=== PATIENT | male | born 1970 | race Caucasian/White ===

== ENCOUNTER 2021-03-25 16:49 | Emergency (ER) | payer BC ==
[2021-03-25] MEDS ORDERED: HYDROmorphone 0.5 MG/0.5 ML Syringe IVPUSH ONE (17:12)
[2021-03-25] MEDS ORDERED: Ketorolac 30 MG/ML SDV IVPUSH ONE (17:12)
[2021-03-25] MEDS ORDERED: Ondansetron 4 MG/2 ML SDV IVPUSH ONE (17:12)
[2021-03-25] MEDS ORDERED: Sodium Chloride 0.9% 1,000 ML IV SCH (17:15)
--- NOTE | 2021-03-25 17:20 | EDM.PDOC ---
ED HPI GENERAL MEDICAL PROBLEM - General Chief Complaint: Flank Pain Stated Complaint: KIDNEY PAIN LT SIDE Time Seen by Provider: 03/25/21 17:05 Source of Information: Reports: Patient History Limitations: Reports: No Limitations - History of Present Illness INITIAL COMMENTS - FREE TEXT/NARRATIVE: This is a pleasant 50 year old male presenting with left flank pain. The patient reports about 2 weeks of intermittent mild left flank pain. About one hour ago, the pain became much more severe. He reports some associated nausea, but no vomiting. he admits to some dark urine and now some difficulty urinating. he reports a history of kidney several times in the past, with one episode requiring lithotripsy. Denies fever or chills. He has not taken anything at home for the pain. Left Flank Pain Score (Numeric/FACES): 8 - Related Data Allergies Allergy/AdvReac Type Severity Reaction Status Date / Time Penicillins Allergy Cannot Verified 03/25/21 16:56 Remember Home Meds: Home Meds Cetirizine [ZyrTEC] 10 mg PO DAILY 08/06/18 [History] Omeprazole 40 mg PO DAILY 08/06/18 [History] amLODIPine [Norvasc] 10 mg PO DAILY 08/06/18 [History] Tamsulosin HCl [Flomax] 0.4 mg PO DAILY #10 capsule 03/25/21 [Rx] Past Medical History Cardiovascular History: Reports: Hypertension, SOB on Exertion Gastrointestinal History: Reports: GERD Genitourinary History: Reports: Renal Calculus - Infectious Disease History Infectious Disease History: Reports: Chicken Pox - Past Surgical History Male Surgical History: Reports: Lithotripsy (ES[facility]) Social & Family History - Family History Family Medical History: No Pertinent Family History - Tobacco Use Tobacco Use Status *Q: Never Tobacco User Second Hand Smoke Exposure: No - Caffeine Use Caffeine Use: Reports: Coffee, Soda - Recreational Drug Use Recreational Drug Use: Yes Recreational Drug Type: Reports: Marijuana/Hashish Recreational Drug Use Frequency: Daily ED ROS GENERAL - Review of Systems Review Of Systems: Comprehensive ROS is negative, except as noted in HPI. ED EXAM, RENAL/ - Physical Exam Exam: See Below Exam Limited By: No Limitations General Appearance: Alert, Moderate Distress (due to pain) Head: Atraumatic, Normocephalic Neck: Supple, Full Range of Motion Respiratory/Chest: Lungs Clear, Normal Breath Sounds, No Accessory Muscle Use Cardiovascular: Regular Rate, Rhythm GI/Abdominal: Soft, Non-Tender Back Exam: Normal Inspection, CVA Tenderness (L) Extremities: Normal Range of Motion, No Pedal Edema Neurological: Alert, Oriented, Normal Cognition, No Motor/Sensory Deficits Psychiatric: Normal Affect, Normal Mood Skin Exam: Warm, Dry Course - Vital Signs Last Recorded V/S: Last Vital Signs Temp 97.6 F 03/25/21 17:04 Pulse 67 03/25/21 17:57 Resp 18 03/25/21 17:04 BP 136/91 H 03/25/21 17:57 Pulse Ox 97 03/25/21 17:57 - Orders/Labs/Meds Labs: Laboratory Tests 03/25/21 03/25/21 03/25/21 Range/Units 17:22 17:22 19:10 WBC 12.7 H (4.5-11.0) K/uL RBC 5.46 (4.30-5.90) M/uL Hgb 16.3 H (12.0-15.0) g/dL Hct 48.0 (40.0-54.0) % MCV 88 (80-98) fL MCH 30 (27-31) pg MCHC 34 (32-36) % Plt Count 306 (150-400) K/uL Neut % (Auto) 75.5 H (36-66) % Lymph % (Auto) 13.4 L (24-44) % [place] % (Auto) 10.7 H (2-6) % Eos % (Auto) 0.2 L (2-4) % Baso % (Auto) 0.2 (0-1) % Sodium 142 (140-148) mmol/L Potassium 3.8 (3.6-5.2) mmol/L Chloride 103 (100-108) mmol/L Carbon Dioxide 26 (21-32) mmol/L Anion Gap 13.0 (5.0-14.0) mmol/L BUN 18 (7-18) mg/dL Creatinine 1.2 (0.8-1.3) mg/dL Est Cr Clr Drug Dosing 79.31 mL/min Estimated GFR (MDRD) > 60 (>60) Glucose 112 H (74-106) mg/dL Calcium 9.6 (8.5-10.1) mg/dL Urine Color Brown A (YELLOW) Urine Appearance Turbid A (CLEAR) Urine pH 5.5 (5.0-8.0) Ur Specific [place] >= 1.030 (1.008-1.030) Urine Protein 100 H (NEGATIVE) mg/dL Urine Glucose (UA) Negative (NEGATIVE) mg/dL Urine Ketones 40 H (NEGATIVE) mg/dL Urine Occult Blood Large H (NEGATIVE) Urine Nitrite Negative (NEGATIVE) Urine Bilirubin Small H (NEGATIVE) Urine Urobilinogen 0.2 (0.2-1.0) EU/dL Ur Leukocyte Esterase Negative (NEGATIVE) Urine RBC Packed H (0-5) Urine WBC 0-5 (0-5) Ur Epithelial Cells Not seen Amorphous Sediment Few Urine Bacteria Occasional Urine Mucus Numerous Urine Other See note Meds: Medications Discontinued Medications Generic Name Dose Route Start Last Admin Trade Name Freq PRN Reason Stop Dose Admin Hydromorphone HCl 0.5 mg 03/25/21 17:12 03/25/21 17:24 Hydromorphone 0.5 Mg/0.5 Ml Syringe IVPUSH 03/25/21 17:13 0.5 mg ONETIME ONE Administration Sodium Chloride 1,000 mls @ 1,000 mls/hr 03/25/21 17:15 03/25/21 17:55 Normal Saline IV 1,000 mls/hr ASDIRECTED SONYA Administration Ketorolac Tromethamine 30 mg 03/25/21 17:12 03/25/21 17:19 Ketorolac 30 Mg/Ml Sdv IVPUSH 03/25/21 17:13 30 mg ONETIME ONE Administration Ondansetron HCl 4 mg 03/25/21 17:12 03/25/21 17:21 Ondansetron 4 Mg/2 Ml Sdv IVPUSH 03/25/21 17:13 4 mg ONETIME ONE Administration Oxycodone HCl 10 mg 03/25/21 18:56 03/25/21 19:01 Oxycodone 5 Mg Tab PO 03/25/21 18:57 10 mg ONETIME ONE Administration Departure - Departure Time of Disposition: 19:48 Disposition: Home, Self-Care 01 Clinical Impression: Renal colic on left side - Discharge Information Prescriptions: Tamsulosin HCl [Flomax] 0.4 mg PO DAILY #10 capsule Instructions: Kidney Stones Referrals: PCP,None [Primary Care Provider] - Forms: ED Department Discharge Additional Instructions: Follow up with Urology at [facility]. Call tomorrow to schedule an appointment. [facility] [address] [place] [address] Strain your urine. Drink plenty of fluids. Take 600 mg if ibuprofen every 6 hours for pain. Use the percocet if pain is not controlled with ibuprofen. Use the zofran for nausea. Return to the emergency department if your pain is not controlled, if you are vomiting, or if you develop a fever. Sepsis Event Note (ED) - Evaluation Sepsis Screening Result: No Definite Risk - Focused Exam Vital Signs: Vital Signs Temp Pulse Resp BP Pulse Ox 03/25/21 17:57 67 136/91 H 97 03/25/21 17:04 97.6 F 67 18 165/97 H 99 - Problem List Review Problem List Initiated/Reviewed/Updated: Yes - Assessment/Plan Assessment:: This is a 50 year old male presenting with left flank pain and a history of kidney stones. History today is suggestive of renal colic. Labs were obtained and notable for a WBC of 12.7, but otherwise unrevealing. His kidney function is normal. Urinalysis reveals RBCs, but no evidence of infection. CT of the abd/pelvis showed a 0.4mm stone at the left UVJ with left hydroureter as well as a more proximal 1.1 cm stone at the UPJ with left hydronephrosis. He was treated in the ED with IVF, zofran, toradol, and dilaudid with improvement of his pain. He was later given a dose of oral oxycodone. Given the size of the stone, I did consult with supervisor filtration urologist Dr. Rhodes with [facility] in [place]. He recommended that the patient could be discharged home as long as his pain was controlled and he was tolerating PO and could follow up with them this week as an outpatient. If his pain was not controlled, he recommended transfer for admission. On reassessment, the patient reported his pain was controlled and he would prefer to go home and follow up as an outpatient. Therefore, he will be discharged home with percocet, zofran, and flomax to use in addition to over the counter ibuprofen. He will follow up with urology this week. He was instructed to return to the ED for uncontrolled pain, vomiting, fever, or other concerning symptoms.
--- NOTE | 2021-03-25 17:55 | CRLCT ---
For Patients: As a result of the Cures Act, medical imaging exams and procedure reports are released immediately into your electronic medical record. You may view this report before your referring provider. If you have questions, please contact your health care provider. INDICATION: Left-sided pain. History of stones. COMPARISON: None. TECHNIQUE: CT abdomen and pelvis without contrast. FINDINGS: The imaged lung bases are unremarkable. Noncontrast evaluation of the liver, gallbladder, spleen, pancreas and adrenal glands are unremarkable. Obstructing left proximal ureteral calculus at the UPJ measuring 1.1 cm in diameter (series 2, image 100). Mild left hydronephrosis. Obstructing distal left ureteral calculus at the UVJ measuring 0.4 cm (series 2, image 212). Mild left hydroureter. Mild left perinephric stranding. Bladder is unremarkable. No free fluid or free air. Diverticulosis. Normal appendix. No bowel obstruction or inflammation. Abdominal aorta is normal in caliber. No enlarged abdominal or pelvic lymph nodes. 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 IMPRESSION: 1. Obstructing renal calculus at the left UPJ with mild left hydronephrosis. 2. Obstructing distal left ureteral calculus at the UVJ measuring 0.4 cm with mild left hydroureter. Please note that all CT scans at this facility use dose modulation, iterative reconstruction, and/or weight-based dosing when appropriate to reduce radiation dose to as low as reasonably achievable. Dictated by Artemio Quick MD @ 03/25/2021 5:54:[address] Artemio Quick @ Mar 25 2021 5:54PM
[2021-03-25] MEDS ORDERED: oxyCODONE 5 MG Tab PO ONE (18:56)
== END 2021-03-25 20:12 | disposition home or self-care (01) ==
LOC: JP.ED 16:49
DX: N23 Unspecified renal colic (principal); K21.9 Gastro-esophageal reflux disease without esophagitis; I10 Essential (primary) hypertension; Z88.0 Allergy status to penicillin; Z79.899 Other long term (current) drug therapy
CPT/HCPCS: 36415; 74176; 80048; 81001; 85025; 96374; 96375; 99284; A9270; J1170; J1885; J2405; J7030

== ENCOUNTER 2021-11-09 08:58 | Day surgery (SDC) | payer BC ==
[~2021-11-09 08:58] MED LIST: Midazolam 1 MG/ML 2 ML SDV ONE; Propofol 200 MG/20 ML SDV ONE; fentaNYL 100 MCG/2 ML SDV ONE
[2021-11-09] MEDS ORDERED: Sodium Chloride 0.9% 1,000 ML IV SCH (09:30)
[2021-11-09] MEDS ORDERED: Propofol 200 MG/20 ML SDV ONE (10:49)
== END 2021-11-09 11:51 | disposition home or self-care (01) ==
LOC: JP.SDS 08:58
PROVIDERS: ATTEND Surgery
DX: R10.9 Unspecified abdominal pain (principal); E78.5 Hyperlipidemia, unspecified; I10 Essential (primary) hypertension; E66.9 Obesity, unspecified; Z88.0 Allergy status to penicillin
CPT/HCPCS: 88305; J2250; J2704; J3010; J7030

== ENCOUNTER 2024-12-19 10:28 | Observation (INO) | payer BC ==
[2024-12-19] MEDS ORDERED: Sodium Chloride 0.9% 10 ML Syringe FLUSH PRN (10:36)
[2024-12-19 10:54] LABS: BASOPHILS ABSOLUTE AUTO 0.04 K/uL (0.00-0.10); BASOPHILS PERCENT AUTO 0.3 % (0.1-1.3); EOSINOPHILS PERCENT AUTO 0.1 % (0.0-5.4); HEMATOCRIT 47.8 % (38.4-49.7); HEMOGLOBIN 16.8 g/dL (12.9-16.9); IMMATURE GRAN PERCENT AUTO 0.7 % (0.0-0.7); LYMPHOCYTES ABSOLUTE AUTO 1.12 K/uL (0.8-3.3); LYMPHOCYTES PERCENT AUTO 7.5 % (11.4-47.7); MEAN CORPUSCULAR HEMOGLOBIN 30.9 pg (31.6-35.5); MEAN CORPUSCULAR HGB CONC 35.1 g/dL (31.6-35.5); MONOCYTES PERCENT AUTO 8.1 % (3.3-12.6); NEUTROPHILS PERCENT AUTO 83.3 % (40.0-78.1); PLATELET COUNT,PLT 260 K/uL (130-375); RED BLOOD CELL COUNT 5.43 M/uL (4.14-5.76); WHITE BLOOD CELL COUNT,WBC 14.9 K/uL (3.2-11.0)
[2024-12-19 10:56] LABS: EOSINOPHILS ABSOLUTE AUTO 0.01 K/uL (0.00-0.40)
[2024-12-19 11:11] LABS: PROTHROMBIN TIME 10.5 sec (9.2-10.6); PTT,PARTIAL THROMBOPLSTIN TIME 23.4 sec (21.8-27.3)
[2024-12-19 11:15] LABS: A/G RATIO 1.2 (1.2-2.2); ALANINE AMINOTRANSFERASE,ALT 43 U/L (12-78); ALBUMIN 4.2 g/dL (3.4-5.0); ALKALINE PHOSPHATASE 71 U/L (46-116); ASPARTATE AMNIOTRANSFERASE,AST 25 U/L (15-37); BILIRUBIN TOTAL 0.4 mg/dL (0.2-1.0); BLOOD UREA NITROGEN,BUN 14 mg/dL (7-18); CARBON DIOXIDE,CO2 26 mmol/L (21-32); CHLORIDE,CL 102 mmol/L (100-108); CREATININE 0.9 mg/dL (0.8-1.3); ESTIMATED GFR 102 mL/min (>60); GLUCOSE RANDOM 144 mg/dL (74-106); PROTEIN TOTAL,TP 7.8 g/dL (6.4-8.2); SODIUM,NA 140 mmol/L (140-148)
[2024-12-19] MEDS: Iopamidol 755 Mg/ML 100 ML Bottle IV SCH (11:25)
[2024-12-19] MEDS: Sodium Chloride 0.9% 10 ML Syringe FLUSH ONE (11:25)
[2024-12-19] MEDS: Sodium Chloride 0.9% 100 ML IV SCH (11:25)
[2024-12-19 11:26] LABS: APPEARANCE,URINE CLEAR (CLEAR); BILIRUBIN,URINE NEGATIVE (NEGATIVE); COLOR,URINE YELLOW (YELLOW); GLUCOSE,URINE 100 mg/dL (NEGATIVE); KETONES,URINE NEGATIVE (NEGATIVE); LEUKOCYTE ESTERASE,URINE NEGATIVE (NEGATIVE); NITRITE,URINE NEGATIVE (NEGATIVE); OCCULT BLOOD,URINE SMALL (NEGATIVE); PROTEIN,URINE NEGATIVE (NEGATIVE); UROBILINOGEN,URINE 0.2 EU/dL (0.2-1.0)
[2024-12-19 11:36] LABS: AMORPHOUS SEDIMENT,URINE NOT SEEN; AMPHETAMINES SCREEN, URINE NEGATIVE (NEGATIVE); BACTERIA,URINE NOT SEEN; BARBITURATE SCREEN,URINE NEGATIVE (NEGATIVE); BENZODIAZEPINES SCREEN,URINE NEGATIVE (NEGATIVE); EPITHELIAL CELLS,URINE RARE; METHADONE SCREEN, URINE NEGATIVE (NEGATIVE); METHAMPHETAMINES SCREEN, URINE NEGATIVE (NEGATIVE); MUCUS,URINE NOT SEEN; OXYCODONE SCREEN,URINE NEGATIVE (NEGATIVE); PROPOXYPHENE SCREEN,URINE NEGATIVE (NEGATIVE); THC SCREEN,URINE 50 NG/ML PRESUMPTIVE POSITIVE (NEGATIVE); WBC,URINE 0-5 (0-5)
[2024-12-19] MEDS: Clopidogrel 75 MG Tab PO ONE (13:06)
[2024-12-19] MEDS: Aspirin 81 MG Tab.Chew PO ONE (13:07)
[2024-12-19] MEDS: Ibuprofen 600 MG Tab PO ONE (13:19)
[2024-12-19] MEDS ORDERED: Morphine 2 MG/ML SYRINGE IVPUSH PRN (13:38)
[2024-12-19] MEDS ORDERED: Ondansetron 4 MG/2 ML SDV IV PRN (13:38)
[2024-12-19] MEDS ORDERED: Acetaminophen 325 MG Tab PO PRN (13:38)
[2024-12-19] MEDS ORDERED: Ondansetron 4 MG Tab.DIS PO PRN (13:38)
[2024-12-19] MEDS ORDERED: Sennosides/Docusate Sodium 50-8.6 MG Tab PO PRN (13:38)
[2024-12-19] MEDS ORDERED: Magnesium Hydroxide 400 MG/5 ML Susp 30 ML Cup PO PRN (13:38)
[2024-12-19 14:00] LABS: CHOLESTEROL HDL 63 mg/dL (40-60); CHOLESTEROL LDL DIRECT 82 mg/dL (0-100); CHOLESTEROL TOTAL 160 mg/dL (0-200); TRIGLYCERIDES 73 mg/dL (15-150)
[2024-12-19] MEDS ORDERED: Insulin Lispro 100 Unit/ML 3 ML KwikPen SUBCUT SCH (14:30)
[2024-12-19] MEDS: Famotidine 20 MG Tab PO SCH (17:25)
[2024-12-19] MEDS: Potassium Chloride 20 MEQ Tab.ER PO SCH (17:26)
[2024-12-19] MEDS: Promethazine 25 MG Tab PO PRN (17:49)
[2024-12-19] MEDS: Cyclobenzaprine 10 MG Tab PO PRN (20:05)
[2024-12-19] MEDS: Acetaminophen/HYDROcodone 325-5 MG Tab PO PRN (20:06)
[2024-12-19] MEDS: LORazepam 2 MG/ML SDV IVPUSH PRN (20:11)
[2024-12-19] MEDS: Melatonin 3 MG Tab PO SCH (20:49)
[2024-12-20 06:01] LABS: HEMATOCRIT 44.8 % (38.4-49.7); HEMOGLOBIN 15.8 g/dL (12.9-16.9); MEAN CORPUSCULAR HEMOGLOBIN 31.1 pg (31.6-35.5); MEAN CORPUSCULAR HGB CONC 35.3 g/dL (31.6-35.5); MEAN CORPUSCULAR VOLUME 88.2 fL (81.4-99.0); RED BLOOD CELL COUNT 5.08 M/uL (4.14-5.76); WHITE BLOOD CELL COUNT,WBC 8.9 K/uL (3.2-11.0)
[2024-12-20 06:14] LABS: HEMOGLOBIN A1C 5.7 % (4.5-6.2)
[2024-12-20 06:20] LABS: A/G RATIO 1.1 (1.2-2.2); ALANINE AMINOTRANSFERASE,ALT 32 U/L (12-78); ALBUMIN 3.6 g/dL (3.4-5.0); ALKALINE PHOSPHATASE 58 U/L (46-116); ASPARTATE AMNIOTRANSFERASE,AST 18 U/L (15-37); BLOOD UREA NITROGEN,BUN 15 mg/dL (7-18); CALCIUM 8.9 mg/dL (8.5-10.1); CARBON DIOXIDE,CO2 25 mmol/L (21-32); CHLORIDE,CL 105 mmol/L (100-108); EST CRCL DRUG DOSING (CG) 90.99 mL/min; ESTIMATED GFR 90 mL/min (>60); GLUCOSE RANDOM 118 mg/dL (74-106); POTASSIUM,K 3.5 mmol/L (3.6-5.2); SODIUM,NA 141 mmol/L (140-148)
[2024-12-20 06:21] LABS: ANION GAP 14.5 mmol/L (5.0-14.0)
[2024-12-20] MEDS: Insulin Lispro 100 Unit/ML 3 ML KwikPen SUBCUT SCH (08:21)
[2024-12-20] MEDS: Rosuvastatin 10 MG Tab PO SCH (09:13)
[2024-12-20] MEDS: Aspirin 81 MG Tab.EC PO SCH (09:13)
[2024-12-20] MEDS: amLODIPine 5 MG Tab PO SCH (09:13)
[2024-12-20] MEDS: Clopidogrel 75 MG Tab PO SCH (09:14)
[2024-12-20] MEDS: Lidocaine 2% 30 ML, Alum Hydrox/Mag Hydrox/Simeth 30 ML, diphenhydrAMINE 75 MG PO PRN (13:19)
[2024-12-20 13:44] LABS: LYME AB IgG Negative (Negative)
[2024-12-20 13:45] LABS: LYME AB IgM Negative (Negative)
== END 2024-12-21 13:55 | disposition home or self-care (01) ==
LOC: JP.ED 10:28 → JP.MS 13:25
PROVIDERS: ADMIT Hospitalist; ATTEND Internal Medicine
DX: R55 Syncope and collapse (principal); R00.1 Bradycardia, unspecified; E87.6 Hypokalemia; I10 Essential (primary) hypertension; E78.00 Pure hypercholesterolemia, unspecified; K21.9 Gastro-esophageal reflux disease without esophagitis; Z87.891 Personal history of nicotine dependence; Z79.899 Other long term (current) drug therapy; Z88.0 Allergy status to penicillin
CPT/HCPCS: 36415; 70450; 70496; 70498; 70551; 73501-RT; 80053; 80061; 80305-QW; 81001; 82947; 83036; 84484; 85025; 85027; 85610; 85730; 86618; 93005; 93010; 93246; 96374; 97110-GP; 97161-GP; 97165-GO; 99223; 99232; 99239; 99285; A9270-GY; C8929; G0378; J1815; J2060; Q0169; Q9967

== ENCOUNTER 2025-02-19 08:28 | Emergency (ER) | payer BC ==
[2025-02-19] MEDS: Midazolam 1 MG/ML 2 ML SDV IVPUSH ONE (09:03)
[2025-02-19 09:06] LABS: BASOPHILS ABSOLUTE AUTO 0.02 K/uL (0.00-0.10); BASOPHILS PERCENT AUTO 0.2 % (0.1-1.3); EOSINOPHILS ABSOLUTE AUTO 0.04 K/uL (0.00-0.40); EOSINOPHILS PERCENT AUTO 0.4 % (0.0-5.4); HEMATOCRIT 45.2 % (38.4-49.7); HEMOGLOBIN 15.8 g/dL (12.9-16.9); IMMATURE GRAN ABSOLUTE AUTO 0.08 K/uL (0.00-0.23); IMMATURE GRAN PERCENT AUTO 0.8 % (0.0-0.7); LYMPHOCYTES ABSOLUTE AUTO 1.19 K/uL (0.8-3.3); MEAN CORPUSCULAR HEMOGLOBIN 30.9 pg (31.6-35.5); MEAN CORPUSCULAR VOLUME 88.3 fL (81.4-99.0); MONOCYTES ABSOLUTE AUTO 0.95 K/uL (0.20-0.90); MONOCYTES PERCENT AUTO 9.6 % (3.3-12.6); NEUTROPHILS ABSOLUTE AUTO 7.61 K/uL (1.0-7.6); PLATELET COUNT,PLT 232 K/uL (130-375); RED BLOOD CELL COUNT 5.12 M/uL (4.14-5.76); WHITE BLOOD CELL COUNT,WBC 9.9 K/uL (3.2-11.0)
[2025-02-19 09:23] LABS: PROTHROMBIN TIME 10.6 sec (9.2-10.6)
[2025-02-19 09:31] LABS: A/G RATIO 1.1 (1.2-2.2); ALANINE AMINOTRANSFERASE,ALT 55 U/L (12-78); ALBUMIN 3.8 g/dL (3.4-5.0); ALKALINE PHOSPHATASE 79 U/L (46-116); ASPARTATE AMNIOTRANSFERASE,AST 27 U/L (15-37); BILIRUBIN TOTAL 0.8 mg/dL (0.2-1.0); BLOOD UREA NITROGEN,BUN 17 mg/dL (7-18); CALCIUM 9.3 mg/dL (8.5-10.1); CARBON DIOXIDE,CO2 24 mmol/L (21-32); CHLORIDE,CL 104 mmol/L (100-108); CREATININE 1.1 mg/dL (0.8-1.3); EST CRCL DRUG DOSING (CG) 82.72 mL/min; ESTIMATED GFR 80 mL/min (>60); GLUCOSE RANDOM 170 mg/dL (74-106); POTASSIUM,K 3.1 mmol/L (3.6-5.2); PROTEIN TOTAL,TP 7.4 g/dL (6.4-8.2); SODIUM,NA 137 mmol/L (140-148); TROPONIN I HIGH SENSITIVITY 20.9 pg/mL (<=60.3)
[2025-02-19 09:34] LABS: ANION GAP 12.1 mmol/L (5.0-14.0)
[2025-02-19 10:07] LABS: APPEARANCE,URINE CLEAR (CLEAR); BILIRUBIN,URINE NEGATIVE (NEGATIVE); COLOR,URINE YELLOW (YELLOW); GLUCOSE,URINE 100 mg/dL (NEGATIVE); KETONES,URINE NEGATIVE (NEGATIVE); LEUKOCYTE ESTERASE,URINE NEGATIVE (NEGATIVE); NITRITE,URINE NEGATIVE (NEGATIVE); OCCULT BLOOD,URINE MODERATE (NEGATIVE); PROTEIN,URINE 100 mg/dL (NEGATIVE); UROBILINOGEN,URINE 0.2 EU/dL (0.2-1.0)
[2025-02-19 10:13] LABS: AMORPHOUS SEDIMENT,URINE NOT SEEN; AMPHETAMINES SCREEN, URINE NEGATIVE (NEGATIVE); BACTERIA,URINE NOT SEEN; BARBITURATE SCREEN,URINE NEGATIVE (NEGATIVE); BENZODIAZEPINES SCREEN,URINE NEGATIVE (NEGATIVE); EPITHELIAL CELLS,URINE NOT SEEN; METHADONE SCREEN, URINE NEGATIVE (NEGATIVE); METHAMPHETAMINES SCREEN, URINE NEGATIVE (NEGATIVE); MUCUS,URINE FEW; OXYCODONE SCREEN,URINE NEGATIVE (NEGATIVE); PROPOXYPHENE SCREEN,URINE NEGATIVE (NEGATIVE); THC SCREEN,URINE 50 NG/ML PRESUMPTIVE POSITIVE (NEGATIVE); WBC,URINE 0-5 (0-5)
[2025-02-19] MEDS: Aspirin 325 MG Tab.EC PO ONE (10:13)
[2025-02-19] MEDS: Sodium Chloride 0.9% 1,000 ML IV ONE (10:16)
[2025-02-19] MEDS: Nitroglycerin 0.4 MG Tab.SL SL PRN (10:36)
[2025-02-19] MEDS: Potassium Chloride 10 MEQ Cap.ER PO ONE (11:54)
[2025-02-19] MEDS: Acetaminophen 500 MG Tab PO ONE (11:56)
== END 2025-02-19 13:24 ==
LOC: JP.ED 08:28
DX: I20.0 Unstable angina (principal); E87.6 Hypokalemia; R40.4 Transient alteration of awareness; I10 Essential (primary) hypertension; Z88.0 Allergy status to penicillin; Z79.899 Other long term (current) drug therapy; Z79.02 Long term (current) use of antithrombotics/antiplatelets
CPT/HCPCS: 36415; 70450; 71045; 80053; 80305; 80307; 81001; 83605; 83735; 84484; 85025; 85610; 93005; 96361; 96374; 99285; A9270; J2250; J7030; 93010; 99284